=== PATIENT | female | born 1970 | race Caucasian/White ===

== ENCOUNTER → 2019-04-16 | Outpatient (CLI) | payer OTHER ==
--- NOTE | 2019-04-16 10:56 | 2DMMODE ---
[place] [address] 2 D/M-MODE ECHOCARDIOGRAM Name: OSIRIS YANEZ Room: [facility]#: [id number] Admission: 04/16/19 Attend Phys: FRANK Dhillon Discharge: Date of : 66 Date of Service: 04/16/19 1055 Report #: [id number] THIS REPORT FOR: cc: Hudson Hernández Robin L. FNP Blick, David R. MD [facility] ~ APPROVED REPORT Study performed: 04/16/2019 09:09:43 EXAM: Comprehensive 2D, Doppler, and color-flow Echocardiogram Patient Location: Out-Patient BSA: 1.78 HR: 87 bpm BP: 115/78 mmHg Other Information Study Quality: Adequate Indications Palpitations 2D Dimensions IVSd: 8.50 (7-11mm) LVOT Diam: 20.53 (18-24mm) LVDd: 35.12 mm PWd: 7.94 (7-11mm) Ascending Ao: 29.71 (22-36mm) LVDs: 25.22 (25-40mm) Aortic Root: 20.86 mm Volumes Left Atrial Volume (Systole) LA ESV Index: 10.10 mL/m2 Aortic Valve AoV Peak Rhys.: 1.11 m/s AO Peak Gr.: 4.89 mmHg LVOT Max P.55 mmHg AO Mean Gr.: 2.53 mmHg LVOT Mean P.84 mmHg LVOT Max V: 0.94 m/s AO V2 VTI: 18.21 cm LVOT Mean V: 0.63 m/s BROCK (VTI): 3.24 cm2 LVOT V1 VTI: 17.79 cm Mitral Valve E/A Ratio: 0.92 [place] [address] 2 D/M-MODE ECHOCARDIOGRAM Name: OSIRIS YANEZ Room: [facility]#: [id number] Admission: 04/16/19 Attend Phys: FRANK Dhillon Discharge: Date of : 66 Date of Service: 04/16/19 1055 Report #: [id number] MV Decel. Time: 198.91 ms MV E Max Rhys.: 0.52 m/s MV PHT: 57.68 ms MVA (PHT): 3.81 cm2 TDI E/Lateral E': 4.73 E/Medial E': 7.43 Medial E' Rhys.: 0.07 m/s Lateral E' Rhys.: 0.11 m/s Pulmonary Valve PV Peak Rhys.: 0.77 m/s PV Peak Gr.: 2.39 mmHg Left Ventricle The left ventricle is normal size. There is normal LV segmental wall motion. There is normal left ventricular wall thickness. Left ventricular systolic function is normal. The left ventricular ejection fraction is within the normal range. LVEF is 55-60%. Grade I - abnormal relaxation pattern. Right Ventricle The right ventricle is normal size. The right ventricular systolic function is normal. Atria The left atrium size is normal. The right atrium size is normal. Aortic Valve The aortic valve is normal in structure. No aortic regurgitation is present. There is no aortic valvular stenosis. Mitral Valve The mitral valve is normal in structure. There is no mitral valve regurgitation noted. No evidence of mitral valve stenosis. Tricuspid Valve The tricuspid valve is normal in structure. There is trace tricuspid valve regurgitation noted. Pulmonic Valve Pulmonic valve is not well visualized. There is no pulmonic valvular regurgitation. Great Vessels The aortic root is normal in size. IVC [place] [address] 2 D/M-MODE ECHOCARDIOGRAM Name: OSIRIS YANEZ Room: [facility]#: [id number] Admission: 04/16/19 Attend Phys: FRANK Dhillon Discharge: Date of : 66 Date of Service: 04/16/19 1055 Report #: [id number] collapses >50% with inspiration. Pericardium There is no pericardial effusion. <Conclusion> Left ventricular systolic function is normal. The left ventricular ejection fraction is within the normal range. <ELECTRONICALLY SIGNED> By: Michael Gambino MD, FACC 04/16/19 1055 Michael Gambino MD, FAC /INF
== END ==
LOC: M.CRD 09:00
DX: R00.2 Palpitations (principal); I45.6 Pre-excitation syndrome